=== PATIENT | female | born 1970 | race Caucasian/White ===

== ENCOUNTER 2023-06-30 10:53 | Observation (INO) | payer OTHER ==
[2023-06-30] MEDS ORDERED: Acetaminophen 500 MG TAB ONE (11:34)
[2023-06-30] MEDS ORDERED: Midazolam HCl 2 mg/2 ml Vial ONE ×2 (12:10→15:22)
[2023-06-30] MEDS ORDERED: PROPOFOL 20 ML ONE ×3 (12:10→14:15)
[2023-06-30] MEDS ORDERED: fentaNYL PF 100 MCG/2 ML SYRINGE ONE ×2 (12:10→13:31)
[2023-06-30] MEDS ORDERED: Dexamethasone 4 mg/ml Vial ONE (12:12)
[2023-06-30] MEDS ORDERED: Lidocaine 1% PF 5 ML VIAL ONE (12:12)
[2023-06-30] MEDS ORDERED: Ondansetron PF 4 MG/2 ML Vial ONE (12:12)
[2023-06-30] MEDS ORDERED: Sodium Chloride 0.9% 100 ML ONE (12:26)
[2023-06-30] MEDS ORDERED: CEFAZOLIN 2 GM VIAL ONE (12:26)
[2023-06-30] MEDS ORDERED: Ketorolac Tromethamine 30 MG (1 mL) VIAL ONE ×2 (13:54→18:29)
[2023-06-30] MEDS ORDERED: fentaNYL 50 mcg/mL 1 mL Vial ONE ×3 (14:24→15:00)
[2023-06-30] MEDS ORDERED: Bupivacaine HCl 0.5%/Epinephrine 1:200,000/PF 30 ml Vial ONE (14:55)
[2023-06-30] MEDS ORDERED: fentaNYL 50 mcg/mL 1 mL Vial SLOW IVP PRN (15:22)
[2023-06-30] MEDS ORDERED: Ropivacaine 0.2% 550 ML 550 ML NERVE BLCK SCH ×2 (15:30→21:00)
[2023-06-30] MEDS ORDERED: Ondansetron PF 4 MG/2 ML Vial IVP PRN (15:30)
[2023-06-30] MEDS ORDERED: Promethazine HCl 25 MG/ML VIAL IM PRN ×2 (15:30→16:15)
[2023-06-30] MEDS ORDERED: Zolpidem Tartrate 5 MG TAB PO PRN (15:30)
[2023-06-30] MEDS ORDERED: traMADol HCl 50 MG TAB PO PRN ×2 (15:30)
[2023-06-30] MEDS ORDERED: HYDROcodone/Acetaminophen 10/325 mg Tablet PO PRN ×2 (15:30)
[2023-06-30] MEDS ORDERED: HYDROmorphone 0.5 MG/0.5 ML SYRINGE ONE ×2 (16:01→16:19)
[2023-06-30] MEDS ORDERED: Naloxone HCl 0.4 mg/ml Vial IV PRN (16:15)
[2023-06-30] MEDS ORDERED: HYDROmorphone/PF 10 MG in Sodium Chloride 0.9% 99 ML IVPB PRN (16:15)
[2023-06-30] MEDS ORDERED: diphenhydrAMINE 50 MG/ML VIAL IM/IV PRN (16:15)
[2023-06-30] MEDS ORDERED: diphenhydrAMINE 25 MG CAP PO PRN (16:15)
[2023-06-30] MEDS ORDERED: HYDROmorphone 0.5 MG/0.5 ML SYRINGE SLOW IVP PRN (16:38)
[2023-06-30] MEDS: HYDROmorphone 0.5 MG/0.5 ML SYRINGE SLOW IVP SCH (18:26)
[2023-06-30] MEDS: Ketorolac Tromethamine 30 MG (1 mL) VIAL IVP SCH (18:30)
[2023-06-30 23:16] VITALS: BMI 34.9
[2023-07-01 07:47] VITALS: BP 133/73; TEMP 98.4
[2023-07-01] MEDS: Ondansetron PF 4 MG/2 ML Vial IVP PRN (08:47)
[2023-07-01] MEDS: Aspirin 81 mg Enteric Coated Tablet PO SCH (09:05)
== END 2023-07-01 12:41 | disposition home or self-care (01) ==
LOC: SDC 10:53 → SURG B 16:09
PROVIDERS: ADMIT Orthopaedic Surgery; ATTEND Orthopaedic Surgery
PROC: 0QSJ04Z Reposition Right Fibula with Internal Fixation Device, Open Approach (ICD-10-PCS; principal; 2023-06-30)
PROC: 0QP Lower Bones, Removal (ICD-10-PCS; 2023-06-30)
DX: S82.61XA Displaced fracture of lateral malleolus of right fibula, initial encounter for closed fracture (principal); Z88.5 Allergy status to narcotic agent; W00.0XXA Fall on same level due to ice and snow, initial encounter; Z90.49 Acquired absence of other specified parts of digestive tract
CPT/HCPCS: 93005; 93010; A4306; C1713; C1874; J1100; J1170; J1885; J2250; J2405; J2704; J2795; J3010; J3490